=== PATIENT | male | born 1950 | race Caucasian/White ===

== ENCOUNTER 2020-06-20 11:01 | Emergency (ER) | payer MEDICARE ==
[~2020-06-20] VITALS: Ht 175.3 cm; Wt 120.0 kg
[~2020-06-20 11:01] MED LIST: AMIO200T42 PO; ATOR20TA37 PO; CEFA2FRO IV; DABI150C PO; DIVA125C2 PO; DOCU-131 PO; FINA5TAB4 PO; FURO-92 PO; HEPA50002 SQ; INSU100I11 SQ-INSULIN; INSU100I13 SQ-INSULIN; LEVO25TA2 PO; LEVO25TA4 PO; LOSA50TA14 PO; MAGN250T8 PO; MAGN400T9 PO; METF500T17 PO; METO2.5T PO; MIDO5TAB9 PO; OXYB-39 PO; PANT40GR PO; POTA20TA14 PO; RISP0.5T24 PO; SODI1TAB PO; SPIR25TA PO; TEMA15CA6 PO
--- NOTE | 2020-06-20 11:15 | NUR ---
BROUGHT IN BY [facility] FROM [facility] FOR [facility] LAST NIGHT, DENIES LOC. WOKE THIS MORNING WITH LBP. 500 MG TYLENOL ADMINISTERED [facility]TER [facility]INA BY EMS
--- NOTE | 2020-06-20 11:38 | NUR ---
PT TO IMAGING
--- NOTE | 2020-06-20 12:24 | NUR ---
paul lombardi at bedside
--- NOTE | 2020-06-20 13:30 | NUR ---
Pt resting in bed, call light in reach.
--- NOTE | 2020-06-20 14:04 | NUR ---
Care facility aware pt ready for discharge.
--- NOTE | 2020-06-20 15:45 | NUR ---
tech in room to help keep pt calm. vss. as
--- NOTE | 2020-06-20 16:27 | NUR ---
report called to [facility]
[2020-06-20 16:47] VITALS: BP 105/69
--- NOTE | 2020-06-20 18:31 | NUR ---
sitter at bedside
== END 2020-06-20 18:55 | disposition home or self-care (01) ==
LOC: ED 11:26
DX: S30.0XXA Contusion of lower back and pelvis, initial encounter (principal); I48.91 Unspecified atrial fibrillation; I25.2 Old myocardial infarction; I50.9 Heart failure, unspecified; I11.0 Hypertensive heart disease with heart failure; X58.XXXA Exposure to other specified factors, initial encounter; Y93.89 Activity, other specified; Y92.89 Other specified places as the place of occurrence of the external cause; Y99.8 Other external cause status
CPT/HCPCS: 72110; 72220; 93005; 99285